=== PATIENT | female | born 1930 | race Caucasian/White ===

== ENCOUNTER 2021-11-09 14:00 | Inpatient (IN) ==
[2021-11-09] MEDS ORDERED: TUSSIONEX PENNKINETIC SUSP PO PRN (19:53)
[2021-11-09] MEDS ORDERED: NS 1/2 1,000 ML IV 1,000 ML IV ONE (20:21)
[2021-11-09] MEDS: ROBITUSSIN DM PO SCH ×2 (20:33→20:34)
[2021-11-09] MEDS: VSL#3 PO SCH (20:33)
[2021-11-09] MEDS: NS 1/2 1,000 ML IV 1,000 ML IV SCH (20:33)
[2021-11-09 20:55] LABS: BASOPHILS % (AUTO) 0.8 % (0.2-1.0); EOSINOPHILS # (AUTO) 0.1 x10^3/uL (0.0-0.2); EOSINOPHILS % (AUTO) 1.6 % (0.9-2.9); HEMATOCRIT 30.7 % (36.0-47.0); HEMOGLOBIN 10.3 g/dL (12.0-16.0); LYMPHOCYTES # (AUTO) 1.2 X10^3/uL (1.3-2.9); LYMPHOCYTES % (AUTO) 26.9 % (21.0-51.0); MEAN CORPUSCULAR HEMOGLOBIN 33.5 pg (27.0-34.0); MEAN CORPUSCULAR HGB CONC 33.6 g/dL (33.0-35.0); MEAN CORPUSCULAR VOLUME 99.5 fL (80.0-100.0); MONOCYTES # (AUTO) 0.4 x10^3/uL (0.3-0.8); MONOCYTES % (AUTO) 9.2 % (0.0-13.0); NEUTROPHILS # (AUTO) 2.7 x10^3/uL (2.2-4.8); NEUTROPHILS % (AUTO) 61.5 % (42.0-75.0); RED BLOOD COUNT 3.08 X10^6/uL (3.5-5.4); RED CELL DISTRIBUTION WIDTH 14.7 % (11.6-16.5); WHITE BLOOD COUNT 4.3 X10^3/uL (3.6-10.0)
[2021-11-09 21:07] LABS: ALANINE AMINOTRANSFERASE 11 Units/L (12-78); ALBUMIN 3.4 g/dL (3.4-5.0); ALKALINE PHOSPHATASE 56 Units/L (46-116); ASPARTATE AMINO TRANSFERASE 27 Units/L (15-37); BLOOD UREA NITROGEN 14 mg/dL (7-18); CALCIUM 8.6 mg/dL (8.5-10.1); CARBON DIOXIDE 26.3 mmol/L (21-32); CHLORIDE 99 mmol/L (98-107); CREATININE 1.25 mg/dL (0.55-1.02); SODIUM 133 mmol/L (136-145); TOTAL PROTEIN 7.3 g/dL (6.4-8.2); eGFR NON BLACK RACES 43 (>60)
[2021-11-09] MEDS: PULMICORT NEB TX 0.5 MG NEB SCH (21:30)
[2021-11-09] MEDS: XOPENEX 1.25 MG/3 ML NEBULE NEB SCH (21:30)
[2021-11-09 21:41] VITALS: BMI 13.7
[2021-11-09] MEDS: ULTRAM PO PRN (22:04)
[2021-11-09] MEDS: XANAX PO PRN (22:05)
[2021-11-09] MEDS ORDERED: LEVAQUIN PREMIX IV 500 MG 500 MG/100 ML BAG IV SCH (23:00)
[2021-11-10] MEDS: ULTRAM PO PRN (03:26)
[2021-11-10] MEDS: XOPENEX 1.25 MG/3 ML NEBULE NEB SCH ×3 (05:56→20:25)
[2021-11-10 06:12] LABS: BASOPHILS % (AUTO) 0.5 % (0.2-1.0); EOSINOPHILS # (AUTO) 0.2 x10^3/uL (0.0-0.2); EOSINOPHILS % (AUTO) 4.2 % (0.9-2.9); HEMATOCRIT 25.3 % (36.0-47.0); HEMOGLOBIN 8.7 g/dL (12.0-16.0); LYMPHOCYTES # (AUTO) 1.1 X10^3/uL (1.3-2.9); LYMPHOCYTES % (AUTO) 25.8 % (21.0-51.0); MEAN CORPUSCULAR HEMOGLOBIN 33.7 pg (27.0-34.0); MEAN CORPUSCULAR HGB CONC 34.4 g/dL (33.0-35.0); MEAN CORPUSCULAR VOLUME 98.1 fL (80.0-100.0); MEAN PLATELET VOLUME 7.6 fL (7.4-11.0); MONOCYTES # (AUTO) 0.6 x10^3/uL (0.3-0.8); MONOCYTES % (AUTO) 12.6 % (0.0-13.0); NEUTROPHILS # (AUTO) 2.5 x10^3/uL (2.2-4.8); NEUTROPHILS % (AUTO) 56.9 % (42.0-75.0); RED BLOOD COUNT 2.57 X10^6/uL (3.5-5.4); RED CELL DISTRIBUTION WIDTH 14.6 % (11.6-16.5); WHITE BLOOD COUNT 4.4 X10^3/uL (3.6-10.0)
[2021-11-10 06:36] LABS: ALANINE AMINOTRANSFERASE 10 Units/L (12-78); ALBUMIN 2.8 g/dL (3.4-5.0); ALKALINE PHOSPHATASE 50 Units/L (46-116); ASPARTATE AMINO TRANSFERASE 22 Units/L (15-37); BLOOD UREA NITROGEN 15 mg/dL (7-18); CARBON DIOXIDE 24.3 mmol/L (21-32); CHLORIDE 101 mmol/L (98-107); CREATININE 1.35 mg/dL (0.55-1.02); SODIUM 133 mmol/L (136-145); TOTAL PROTEIN 6.3 g/dL (6.4-8.2); eGFR NON BLACK RACES 39 (>60)
--- NOTE | 2021-11-10 07:32 | RAD ---
HISTORYSOBSTUDYCHEST, 1 [id number]/24/2021.TECHNIQUEAP view of the chestFINDINGSCardiac and mediastinal contours are within normal limits. Lungs are hyperexpanded. Similar appearing hazy right base pulmonary opacity. No definite pleural effusion or pneumothorax.IMPRESSIONCOPD. Similar appearing hazy right base pulmonary opacity which may represent pleural parenchymal scarring but pneumonia is not excluded. Consider CT for further evaluation as clinically warranted. Also recommend CT if there is need to evaluate for pulmonary nodules.Electronically signed by: Suresh Tao (Nov 10, 2021 07:31:15)
[2021-11-10] MEDS: PULMICORT NEB TX 0.5 MG NEB SCH ×2 (09:00→20:25)
--- NOTE | 2021-11-10 10:02 | DR.H&P ---
H&P - History & Physical for Day of: H&P Date: 11/09/21 - Chief Complaint Chief Complaint: COUGH, SOB, CONGESTION, WEAKNESS, DECREASED APPETITE, FREQUENT FALLS - History of Present Illness History of Present Illness: IS AN 89 YEAR OLD PATIENT IN THE OFFICE. SHE PRESENTED TO THE OFFICE WITH COMPLAINTS OF PRODUCTIVE COUGH, CONGESTION, SHORTNESS OF BREATH, WEAKNESS, DECREASED APPETITE, AND FREQUENT FALLS. SYMPTOMS STARTED APPROXIMATELY TWO WEEKS AGO AND HAVE PROGRESSIVELY GOTTEN WORSE. PATIENT HAS APPARENTLY FALLEN AT HOME MULTIPLE TIMES. SHE DOES HAVE TWO SCABBED OVER WOUNDS TO THE RIGHT LOWER EXTREMITY. PATIENT WAS ADMITTED TO THE HOSPITAL FOR FURTHER EVALUATION AND TREATMENT. HER PMH INCLUDES DEMENTIA, CAD, HTN, GERD, PANCREATITIS, ARTHRITIS, OSTEOARTHRITIS, ANXIETY, DEPRESSION, APPENDECTOMY, CHOLECYSTECTOMY, HYSTERECTOMY, CARDIAC STENTS. ON ARRIVAL TO THE HOSPITAL, VITALS WERE 98.1-66-18-95%-184/81. LABS WERE OBTAINED. ABNORMAL LAB VALUES INCLUDE THE FOLLOWING: RBC 3.08, HGB 10.3, HCT 30.7, SODIUM 133, CREATININE 1.25, GFR 43, ALT 11. COVID-19 NEGATIVE. BLOOD CULTURES WERE SET UP. A CHEST XRAY WAS OBTAINED AND REVEALED: COPD. Similar appearing hazy right base pulmonary opacity which may represent pleural parenchymal scarring but pneumonia is not excluded. SHE WAS STARTED ON 1/2NS AT 75 ML/HR, LEVAQUIN 500MG IV Q48H, XOPENEX NEBS TID, PULMICORT NEBS BID, ROBITUSSIM DM 10ML PO QID, TUSSIONEX 5ML PO Q12H PRN, ULTRAM 50MG PO Q4H PRN, KLONOPIN 0.5MG PO HS, XANAX 0.25MG PO BID PRN. OTHERWISE, WE PLAN TO FOLLOW UP WITH AM LABS AND CHEST XRAY AND CONTINUE TO MONITOR. WE WILL HAVE PHYSICAL THERAPY EVALUATE PATIENT. TIME SPENT ON CLINICAL ASSESSMENT, REVIEWING LABS AND IMAGING, DECISION MAKING, AND DOCUMENTATION GREATER THAN 75 MINUTES. - Past Medical History Past Medical History: Dyslipidemia, Alzheimers, Anxiety, Hypothyroidism, GERD - Past Surgical History Surgical History: Appendectomy, Cholecystectomy, Hysterectomy - Family History Family Medical History: Diabetes Mellitus, Cancer, Coronary Artery Disease - Social History Does patient currently use any type of tobacco product: No Have you used tobacco products in the last 12 months: No Type of Tobacco Use: None Alcohol Use: None Drug Use: None - Medications Home Medications: doxycycline Allergy (Verified 08/24/21 13:01) Penicillins Allergy (Verified 08/24/21 13:01) shellfish derived Allergy (Verified 08/24/21 13:01) - Review of Systems Constitutional: Weakness Eyes: No Symptoms Reported ENT: See HPI, Nose Congestion Respiratory: See HPI, Cough, Shortness of Breath, Sputum Cardiovascular: No Symptoms Reported Gastrointestinal: No Symptoms Reported Genitourinary: No Symptoms Reported Musculoskeletal: No Symptoms Reported Skin: See HPI, Wound (RIGHT LOWER EXTREMITY ) Neurological: Weakness - Physical Exam Vital Signs: Temperature 98.0 F Pulse Rate [Brachial] 75 Pulse Rate 122 Respiratory Rate 16 Blood Pressure [Left Arm] 106/57 Blood Pressure 127/67 O2 Sat by Pulse Oximetry 99 Oriented: Person Eyes: Normal Ear: Normal Nose: Normal Throat: Normal Respiratory: Rhonchi Throughout Cardiovascular: Normal : Normal Auscultation: Bowel Sounds: Normal Palpation: Normal Tenderness: Normal Skin: Decreased [place], Wound (RIGHT LOWER EXTREMITY SCABBED OVER WOUNDS ), Bruising Musculoskeletal: Instability Psychiatric: Normal Mood Description: Calm Affect: Normal Speech Pattern: Clear - Assessment/Plan (1) Pneumonia Qualifiers: Pneumonia type: due to unspecified organism Laterality: right Lung location: lower lobe of lung Qualified Code(s): J18.9 - Pneumonia, unspecified organism Status: Acute Plan: ADMIT, IV FLUIDS, IV ANTIBIOTICS, RESPIRATORY TREATMENTS, SUPPLEMENTAL OXYGEN, CONTINUE TO MONITOR (2) COPD (chronic obstructive pulmonary disease) Qualifiers: COPD type: COPD with acute exacerbation Qualified Code(s): J44.1 - Chronic obstructive pulmonary disease with (acute) exacerbation Status: Acute (3) Dehydration Status: Acute (4) Frequent falls Status: Acute (5) Generalized weakness Status: Acute (6) Hypertension Qualifiers: Hypertension type: primary hypertension Qualified Code(s): I10 - Essential (primary) hypertension Status: Chronic (7) GERD (gastroesophageal reflux disease) Qualifiers: Esophagitis presence: esophagitis presence not specified Qualified Code(s): K21.9 - Gastro-esophageal reflux disease without esophagitis Status: Chronic (8) CAD (coronary artery disease) Qualifiers: Coronary Disease-Associated Artery/Lesion type: [place] artery [place] vs. transplanted heart: [place] heart Status: Chronic (9) Dementia Qualifiers: Dementia type: unspecified type Dementia behavioral disturbance: without behavioral disturbance Qualified Code(s): F03.90 - Unspecified dementia without behavioral disturbance Status: Chronic (10) Arthritis Status: Chronic - Allergies Allergies/Adverse Reactions: Allergies Allergy/AdvReac Type Severity Reaction Status Date / Time doxycycline Allergy Verified 08/24/21 13:01 Penicillins Allergy Verified 08/24/21 13:01 shellfish derived Allergy Verified 08/24/21 13:01
[2021-11-10] MEDS: ROBITUSSIN DM PO SCH ×4 (10:41→21:03)
[2021-11-10] MEDS: VSL#3 PO SCH (10:41)
[2021-11-10] MEDS ORDERED: NS 1/2 1,000 ML IV 1,000 ML IV ONE (10:48)
[2021-11-10] MEDS: XANAX PO PRN ×2 (10:51→21:03)
[2021-11-10] MEDS: NS 1/2 1,000 ML IV 1,000 ML IV SCH (10:51)
[2021-11-10] MEDS ORDERED: KLONOPIN TAB 0.5 MG PO SCH (21:00)
[2021-11-11] MEDS: NS 1/2 1,000 ML IV 1,000 ML IV SCH (01:55)
[2021-11-11] MEDS ORDERED: NS 1/2 1,000 ML IV 1,000 ML IV ONE (01:55)
[2021-11-11] MEDS: XOPENEX 1.25 MG/3 ML NEBULE NEB SCH (05:00)
[2021-11-11 06:19] LABS: BASOPHILS % (AUTO) 0.6 % (0.2-1.0); EOSINOPHILS # (AUTO) 0.1 x10^3/uL (0.0-0.2); EOSINOPHILS % (AUTO) 2.7 % (0.9-2.9); HEMATOCRIT 23.9 % (36.0-47.0); HEMOGLOBIN 8.2 g/dL (12.0-16.0); LYMPHOCYTES # (AUTO) 1.1 X10^3/uL (1.3-2.9); LYMPHOCYTES % (AUTO) 22.5 % (21.0-51.0); MEAN CORPUSCULAR HGB CONC 34.3 g/dL (33.0-35.0); MEAN CORPUSCULAR VOLUME 98.9 fL (80.0-100.0); MEAN PLATELET VOLUME 7.8 fL (7.4-11.0); MONOCYTES # (AUTO) 0.5 x10^3/uL (0.3-0.8); NEUTROPHILS % (AUTO) 63.2 % (42.0-75.0); RED BLOOD COUNT 2.42 X10^6/uL (3.5-5.4); RED CELL DISTRIBUTION WIDTH 14.7 % (11.6-16.5); WHITE BLOOD COUNT 4.7 X10^3/uL (3.6-10.0)
[2021-11-11 06:44] LABS: ALANINE AMINOTRANSFERASE 11 Units/L (12-78); ALBUMIN 2.7 g/dL (3.4-5.0); ALKALINE PHOSPHATASE 45 Units/L (46-116); ASPARTATE AMINO TRANSFERASE 22 Units/L (15-37); BLOOD UREA NITROGEN 9 mg/dL (7-18); CALCIUM 8.1 mg/dL (8.5-10.1); CARBON DIOXIDE 24.4 mmol/L (21-32); CHLORIDE 108 mmol/L (98-107); COR CA(FOR HYPOALB) 9.1 mg/dL (8.5-10.1); SODIUM 141 mmol/L (136-145); TOTAL PROTEIN 5.8 g/dL (6.4-8.2); eGFR NON BLACK RACES 50 (>60)
--- NOTE | 2021-11-11 07:05 | RAD ---
HISTORYSOBSTUDYCHEST, 1 [id number]/08/2022.TECHNIQUEAP view of the chestFINDINGSCardiac and mediastinal contours are within normal limits. Lungs are hyperexpanded. No significant change in mild hazy right base pulmonary opacity. No definite pleural effusion or pneumothorax.IMPRESSIONNo significant change. COPD with mild hazy right base pulmonary opacity which may be scar.Electronically signed by: Suresh Tao (Nov 11, 2021 07:04:23)
[2021-11-11 08:49] VITALS: BP 128/74
[2021-11-11] MEDS: PULMICORT NEB TX 0.5 MG NEB SCH (08:49)
[2021-11-11] MEDS: XANAX PO PRN (08:53)
[2021-11-11] MEDS: VSL#3 PO SCH (08:54)
[2021-11-11] MEDS: ROBITUSSIN DM PO SCH (08:54)
== END 2021-11-11 11:30 | disposition home or self-care (01) | DRG 194 ==
LOC: OBS → OBSVTOIN 16:22 → MED/SURG 18:56
PROVIDERS: ADMIT Internal Medicine; ATTEND Internal Medicine
DX: Z20.822 Contact with and (suspected) exposure to COVID-19; E03.8 Other specified hypothyroidism; E78.2 Mixed hyperlipidemia; J44.1 Chronic obstructive pulmonary disease with (acute) exacerbation; G30.8 Other Alzheimer's disease; K21.9 Gastro-esophageal reflux disease without esophagitis; I10 Essential (primary) hypertension; R29.6 Repeated falls; R53.1 Weakness; R06.02 Shortness of breath; J18.8 Other pneumonia, unspecified organism; F02.80 Dementia in other diseases classified elsewhere, unspecified severity, without behavioral disturbance, psychotic disturbance, mood disturbance, and anxiety; E86.0 Dehydration; I25.10 Atherosclerotic heart disease of native coronary artery without angina pectoris; R26.89 Other abnormalities of gait and mobility